=== PATIENT | female | born 1975 | race Caucasian/White ===

== ENCOUNTER → 2024-02-05 | Outpatient (CLI) | payer OTHER ==
[~2024-02-05] MED LIST: CELE1CAP4 PO; CELE40TA PO; COUM1TAB17 PO; EXTR500C4 PO; FERR325T3 PO; HYDR-3713 PO; IBUP1TAB7 PO; LYRI75CA PO; PERC5TAB12 PO; PRIL40CA PO; TOPA100T12 PO; TOPA200T7 PO
== END ==
LOC: M PAIN 08:00
PROVIDERS: ATTEND Nurse Practitioner Family
DX: M25.551 Pain in right hip (principal); F41.8 Other specified anxiety disorders; I10 Essential (primary) hypertension; K76.0 Fatty (change of) liver, not elsewhere classified; R16.2 Hepatomegaly with splenomegaly, not elsewhere classified; G43.909 Migraine, unspecified, not intractable, without status migrainosus; Z79.891 Long term (current) use of opiate analgesic; Z79.899 Other long term (current) drug therapy; Z88.0 Allergy status to penicillin; Z88.1 Allergy status to other antibiotic agents; Z88.2 Allergy status to sulfonamides